=== PATIENT | male | born 1970 | race Caucasian/White ===

== ENCOUNTER 2017-06-30 15:02 | Emergency (ER) | payer BC ==
[2017-06-30 15:06] VITALS: BP 155/102; PULSE 68; TEMP 98.9; BMI 25.1
--- NOTE | 2017-06-30 15:22 | PDOC ---
History of Present Illness - History of Present Illness Initial Comments: 06/30/17 15:49 The patient is a 46 year old male, with significant past medical history of chronic hematuria (4-5 years), who presents to the emergency department with left upper abdominal pain that began today at 11:30 am. He describes the pain as sharp, non radiating and rates his abdominal pain 10/10 this morning but currently rates it 5/10. He denies taking any current medication. His past CT scan to r/o kidney stones was negative. Saw his doctor today who found blood in his urine and referred him to the ER. Pain is dull, 5/10. Does not radiate. Pain is better when ambulating. Pain worsens when sitting down and he states he is unable to find a comfortable position. He denies any recent fevers, chills, headache or dizziness. He denies any recent nausea, vomit, diarrhea or constipation. He denies any recent chest pain or shortness of breath. He denies any recent dysuria, frequency, urgency or hematuria. Allergies: NKA Past surgical history: None reported. Social History: Nonsmoker. Denies EtOH use and recreational drug use. <Nereida Rose - Last Filed: 06/30/17 15:49> <Chelita Shankar - Last Filed: 06/30/17 17:49> - General Chief Complaint: Pain, Acute Stated Complaint: left upper abd pain Time Seen by Provider: 06/30/17 15:12 Past History <Nereida Rose - Last Filed: 06/30/17 15:49> - Past Medical History COPD: No Other medical history: denies - Suicide/Smoking/Psychosocial Hx Smoking History: Never smoked Hx Alcohol Use: No Drug/Substance Use Hx: No Substance Use Type: None <Chelita Shankar - Last Filed: 06/30/17 17:49> - Past Medical History Allergies/Adverse Reactions: Allergies Allergy/AdvReac Type Severity Reaction Status Date / Time No Known Allergies Allergy Verified 06/30/17 15:03 Home Medications: Ambulatory Orders NK [No Known Home Medication] 06/30/17 Review of Systems - Review of Systems Comments:: 06/30/17 15:52 GENERAL/CONSTITUTIONAL: No fever or chills. No weakness. HEAD, EYES, EARS, NOSE AND THROAT: No change in vision. No ear pain or discharge. No sore throat. GASTROINTESTINAL: +LUQ pain. No nausea, vomiting, diarrhea or constipation. GENITOURINARY: No dysuria, frequency, or change in urination. CARDIOVASCULAR: No chest pain or shortness of breath. RESPIRATORY: No cough, wheezing, or hemoptysis. MUSCULOSKELETAL: No joint or muscle swelling or pain. No neck or back pain. SKIN: No rash NEUROLOGIC: No headache, vertigo, loss of consciousness, or change in strength/ sensation. ENDOCRINE: No increased thirst. No abnormal weight change. HEMATOLOGIC/LYMPHATIC: No anemia, easy bleeding, or history of blood clots. ALLERGIC/IMMUNOLOGIC: No hives or skin allergy. <Nereida Rose - Last Filed: 06/30/17 15:49> *Physical Exam - Vital Signs Last Vital Signs Temp Pulse Resp BP Pulse Ox 98.9 F 68 16 155/102 97 06/30/17 15:03 06/30/17 15:03 06/30/17 15:03 06/30/17 15:03 06/30/17 15:03 - Physical Exam Comments: 06/30/17 15:53 GENERAL: Awake, alert, and fully oriented, in no acute distress HEAD: No signs of trauma EYES: PERRLA, EOMI, sclera anicteric, conjunctiva clear ENT: Auricles normal inspection, nares patent, Moist mucosa NECK: Normal ROM, supple, no lymphadenopathy, JVD, or masses LUNGS: Breath sounds equal, clear to auscultation bilaterally. No wheezes, and no crackles HEART: Regular rate and rhythm, normal S1 and S2, no murmurs, rubs or gallops ABDOMEN: Left mid abdominal tenderness. No rebound, no guarding. No masses EXTREMITIES: Normal range of motion, no edema. No clubbing or cyanosis. No cords, erythema, or tenderness NEUROLOGICAL: Normal speech SKIN: Warm, Dry, normal turgor, no rashes or lesions noted. <Nereida Rose - Last Filed: 06/30/17 15:49> - Vital Signs Last Vital Signs Temp Pulse Resp BP Pulse Ox 98.9 F 68 16 155/102 97 06/30/17 15:03 06/30/17 15:03 06/30/17 15:03 06/30/17 15:03 06/30/17 15:03 <Chelita Shankar - Last Filed: 06/30/17 17:49> ED Treatment Course - Medications Given in the ED: ED Medications Discontinued Medications Generic Name Dose Route Start Last Admin Trade Name Sylvia PRN Reason Stop Dose Admin Ibuprofen 600 mg 06/30/17 15:27 06/30/17 15:34 Motrin - PO 06/30/17 15:28 600 mg ONCE ONE Administration <Nereida Rose - Last Filed: 06/30/17 15:49> - LABORATORY CBC & Chemistry Diagram: 06/30/17 15:32 06/30/17 15:32 <Chelita Shankar - Last Filed: 06/30/17 17:49> Medical Decision Making - Medical Decision Making 06/30/17 15:19 46 yo male with c/o left upper quadrant sharp pain. differential: renal colic, uti, rhabdo, splenomegaly, plan ua labs. 06/30/17 17:47 ct with signs or renal pathology. T bili elevated 1.5 us ruq ordered r/o biliary obstruction. pt pain improved. dc with gi followup and urology followup. pt has had a normal cystoscopy and is aware of hematuria. <Chelita Shankar - Last Filed: 06/30/17 17:49> *DC/Admit/Observation/Transfer - Attestations Scribe Attestion: 06/30/17 15:53 Documentation prepared by Nereida Rose, acting as medical technologist for Chelita Shankar MD. <Nereida Rose - Last Filed: 06/30/17 15:49> <Chelita Shankar - Last Filed: 06/30/17 17:49> Diagnosis at time of Disposition: Hematuria, Hyperbilirubinemia - Discharge Dispostion Condition at time of disposition: Stable - Referrals Referrals: Alexis Malhotra MD [Staff Physician] - Taj Murry MD [Staff Physician] - - Patient Instructions Printed Discharge Instructions: Blood in Urine, DI for Abdominal Pain-Adult Additional Instructions: Follow-up with your urologist. He should also follow up with Dr. Malhotra, a supervisor phosphoric acid regarding her abnormal liver test. Your CAT scan and ultrasound today were normal. Return for any recurrent pain, vomiting, fevers, or any concerns
[2017-06-30] MEDS ORDERED: IBUPROFEN 600 MG TABLET (FP) PO ONE ×2 (15:27→15:33)
[2017-06-30 16:13] LABS: BASOPHIL 0.2 % (0-2.0); EOSINOPHIL 0.1 % (0-4.5); MCH 28.4 pg (25.7-33.7); MCHC 32.9 g/dl (32.0-35.9); MEAN CELL VOLUME 86.3 fl (80-96); MEAN PLT VOLUME 10.5 fl (7.5-11.1); NEUTROPHILS 88.4 % (42.8-82.8); PLATELET COUNT 235 K/MM3 (134-434); RDW 12.1 % (11.9-15.9); WHITE BLOOD COUNT 10.4 K/mm3 (4.0-10.8)
[2017-06-30 16:14] LABS: URINE APPEARANCE Clear; URINE BILIRUBIN Negative (NEGATIVE); URINE GLUCOSE (UA) Negative (NEGATIVE); URINE KETONE Trace (NEGATIVE); URINE LEUK ESTERASE Negative (NEGATIVE); URINE NITRITE Negative (NEGATIVE); URINE PROTEIN Negative (NEGATIVE); URINE UROBILINOGEN 0.2 (0.2-1.0)
[2017-06-30 16:15] LABS: URINE BLOOD 2+ (NEGATIVE); URINE COLOR YELLOW
[2017-06-30 16:16] LABS: ALBUMIN 4.1 g/dl (3.5-5.0); ALK PHOS 121 U/L (32-92); ANION GAP 5 (8-16); BILIRUBIN,TOTAL 1.5 mg/dl (0.2-1.0); CALCIUM 9.7 mg/dl (8.4-10.2); CO2 28 mmol/L (22-28); GLUCOSE,RANDOM 136 mg/dl (74-106); SGOT/AST 24 U/L (10-42); SGPT/ALT 29 U/L (10-40); TOT PROT 6.9 g/dl (6.4-8.3)
[2017-06-30 16:28] LABS: URINE WBC 0-2 (0-2)
[2017-06-30 16:29] LABS: URIC ACID CRYSTALS MODERATE /hpf (NONE SEEN); URINE BACTERIA FEW /hpf (NEGATIVE)
== END 2017-06-30 17:56 | disposition home or self-care (01) ==
LOC: FER 15:02
DX: R31.9 Hematuria, unspecified (principal); E80.6 Other disorders of bilirubin metabolism
CPT/HCPCS: 36415; 74176; 76705-TC; 80053; 81003; 81015; 85025; 87086; 99283-25

== ENCOUNTER 2019-06-19 20:53 | Observation (INO) | payer BC ==
[2019-06-19 21:02] VITALS: BMI 25.1
--- NOTE | 2019-06-19 21:26 | PDOC ---
Documentation entered by Radha Castillo SCRIBE, acting as scribe for Ivanna Narvaez MD. Ivanna Narvaez MD: This documentation has been prepared by the Jonathan alvarado Aiswarya, SCRIBE, under my direction and personally reviewed by me in its entirety. I confirm that the documentation accurately reflects all work, treatment, procedures, and medical decision making performed by me. History of Present Illness - General Chief Complaint: Syncope/Near Syncope Stated Complaint: DIZZINESS Time Seen by Provider: 06/19/19 20:57 History Source: Patient Exam Limitations: No Limitations - History of Present Illness Initial Comments: 06/19/19 21:11 Assessment and plan: This is a 48-year-old male with history of hypertension recently started on a new blood pressure medication who is had some dizziness. Patient had a syncopal episode this evening. Patient said he did not know he was going to pass out his heard a boom and found him on the floor in the kitchen. There was no apparent seizure activity. Or postictal. Patient denies history of similar symptoms/syncope in the past. Patient is complaining of a frontal headache that he has had throughout the day.. Work-up was initiated including CBC, comp, EKG, iliac enzymes, chest x-ray and head CT EKG showed normal sinus rhythm at a rate of [address]-T wave changes but did show some LVH. 06/19/19 21:28 The patient is a 48 year old male, with no significant PMH, who presents to the emergency department for evaluation of syncope episode that occurred tonight. Patient states he endorses associated symptoms of lightheadedness and headache throughout the day. After dinner, patients found patient syncopized for about 30 seconds on the floor. The patient denies chest pain and shortness of breath. Denies fever, chills, nausea, vomit, diarrhea and constipation. PAST MEDICAL HISTORY: no significant history PAST SURGICAL HISTORY: no significant history FAMILY HISTORY: no pertinent history SOCIAL HISTORY: Pt lives with family and is employed. MEDICATIONS: reviewed ALLERGIES: As per nursing notes Adult ROS General: No fevers or chills, no weakness, no weight loss HEENT: No change in vision. No sore throat,. No ear pain CardioVascular: No chest pain or shortness of breath Respiratory:No cough, or wheezing. Gastrointestinal: no nausea, vomiting, diarrhea or constipation, No rectal bleeding Genitourinary: No dysuria, hematuria, or frequency Musculoskeletal: No joint or muscle pain or swelling Neurologic:+headache +lightheadedness Psychiatric: nor depression Skin: No rashes or easy bruising Endocrine: no increased thirst or abnormal weight change Allergic: no skin or latex allergy All other systems reviewed and normal Adult Exam: General: Well-nourished well-developed individual, no acute distress HEENT: Throat: Normal, tonsils normal, no erythema or exudate Neck: Supple, no meningeal signs, no lymphadenopathy Eyes::Pupils equal reactive and round, extraocular motion intact Chest: Nontender to palpation Cardiac: S1-S2 normal, regular rate and rhythm, no murmurs rubs or gallops Respiratory: Lungs clear to auscultation bilateral Abdomen: Soft, nondistended, normal bowel sounds, nontender to palpation diffusely Extremities: Warm, dry, no cyanosis, clubbing, or edema Skin: No rashes Neuro: Alert and oriented x3, nonfocal exam, grossly intact, normal gait Psych: Normal mood and affect 06/19/19 22:15 Reevaluation. Patient is without complaints. Patient received some IV fluid and is feeling better and less lightheaded. Patient's glucose was elevated at 78. Patient is unaware that he has a history of diabetes or is prediabetic. Patient most likely has had a high sugar for a while as he has had some polyuria and polydipsia which is contributing to his lightheadedness. Patient will be admitted to a inpatient bed and Past History - Past Medical History Allergies/Adverse Reactions: Allergies Allergy/AdvReac Type Severity Reaction Status Date / Time No Known Allergies Allergy Verified 03/20/18 18:09 Home Medications: Ambulatory Orders Amlodipine Besylate 5 mg PO DAILY 06/19/19 COPD: No - Psycho Social/Smoking Cessation Hx Smoking History: Never smoked Have you smoked in the past 12 months: No Hx Alcohol Use: No Drug/Substance Use Hx: No Substance Use Type: None *Physical Exam - Vital Signs Last Vital Signs Temp Pulse Resp BP Pulse Ox 98.8 F 94 H 16 158/101 H 98 06/19/19 20:57 06/19/19 20:57 06/19/19 20:57 06/19/19 20:57 06/19/19 20:57 ED Treatment Course - LABORATORY CBC & Chemistry Diagram: 06/19/19 21:15 06/19/19 21:15 - ADDITIONAL ORDERS Additional order review: Laboratory Results 06/19/19 06/19/19 06/19/19 21:15 21:15 21:15 Sodium 136 Potassium 4.0 Chloride 104 Carbon Dioxide 25 Anion Gap 7 L BUN 24.0 H Creatinine 1.1 Est GFR (CKD-EPI)AfAm 91.52 Est GFR (CKD-EPI)NonAf 78.96 Random Glucose 178 H Calcium 8.8 Total Bilirubin 1.2 H AST 28 ALT 34 Alkaline Phosphatase 109 Creatine Kinase 167 Creatine Kinase Index 1.3 CK-MB (CK-2) 2.2 Troponin I < 0.03 Total Protein 6.8 Albumin 4.0 06/19/19 21:15 RBC 5.07 MCV 87.6 MCHC 33.9 RDW 12.1 MPV 9.2 D Neutrophils % 84.2 H Lymphocytes % 10.4 D Monocytes % 4.6 Eosinophils % 0.3 D Basophils % 0.5 - RADIOLOGY Radiology Studies Ordered: Category Date Time Status HEAD CT WITHOUT CONTRAST [CT] Stat CT Scan 06/19/19 21:09 Taken CHEST X-RAY PORTABLE* [RAD] Stat Radiology 06/19/19 21:10 Taken Discharge - Discharge Information Problems reviewed: Yes Clinical Impression/Diagnosis: Syncope Qualifiers: Syncope type: unspecified Qualified Code(s): R55 - Syncope and collapse Condition: Stable - Admission Yes - Follow up/Referral Referrals: Joes Subramanian [Primary Care Provider] - - Patient Discharge Instructions - Post Discharge Activity
[2019-06-19 21:27] LABS: BASO % 0.5 % (0-2.0); EOS % 0.3 % (0-4.5); HEMATOCRIT 44.4 % (35.4-49); HEMOGLOBIN 15.1 GM/dl (11.7-16.9); LYMPH % 10.4 % (8-40); MCH 29.7 pg (25.7-33.7); MCHC 33.9 g/dl (32.0-35.9); MEAN CELL VOLUME 87.6 fl (80-96); MEAN PLT VOLUME 9.2 fl (7.5-11.1); MONO % 4.6 % (3.8-10.2); NEUT % 84.2 % (42.8-82.8); PLATELET COUNT 294 K/MM3 (134-434); RBC 5.07 M/mm3 (4.00-5.60); RDW 12.1 % (11.9-15.9); WHITE BLOOD COUNT 10.1 K/mm3 (4.0-10.8)
[2019-06-19 21:42] LABS: BILIRUBIN,TOTAL 1.2 mg/dl (0.2-1); CALCIUM 8.8 mg/dl (8.5-10); CREATININE 1.1 mg/dl (0.55-1.3); TOT PROT 6.8 g/dl (6.4-8.2)
[2019-06-19] MEDS ORDERED: SODIUM CHLORIDE 1,000 ML IV ONE (21:52)
--- NOTE | 2019-06-19 22:25 | HP ---
Admitting History and Physical - Primary Care Physician PCP: Dr. Gallardo - Admission Chief Complaint: Syncope episode History of Present Illness: 48-year-old male with history of hypertension recently started on a new blood pressure medication. Patient had a syncope episode this evening for 30 second found on the floor. Patient said he did not know he was going to pass out his heard a boom and found him on the floor in the kitchen. Patient denies history of similar symptoms/syncope in the past. Patient is complaining of a frontal headache throughout the day. Patient denies fever, chills, nausea, vomit , diarrhea and constipation. History Source: Patient Limitations to Obtaining History: No Limitations - Past Medical History Cardiovascular: Yes: HTN - Past Surgical History Past Surgical History: Yes: None - Smoking History Smoking history: Never smoked Have you smoked in the past 12 months: No - Alcohol/Substance Use Hx Alcohol Use: No - Social History Usual Living Arrangement: Yes: With Spouse ADL: Independent History of Recent Travel: No Home Medications - Allergies Allergies/Adverse Reactions: Allergies Allergy/AdvReac Type Severity Reaction Status Date / Time No Known Allergies Allergy Verified 03/20/18 18:09 - Home Medications Home Medications: Ambulatory Orders Amlodipine Besylate 5 mg PO DAILY 06/19/19 Family Medical History Family History: Denies Review of Systems - Review of Systems Constitutional: reports: No Symptoms Eyes: reports: No Symptoms HENT: reports: No Symptoms Neck: reports: No Symptoms Cardiovascular: reports: No Symptoms Respiratory: reports: No Symptoms Gastrointestinal: reports: No Symptoms Genitourinary: reports: No Symptoms Breasts: reports: No Symptoms Reported Musculoskeletal: reports: No Symptoms Integumentary: reports: No Symptoms Neurological: reports: Headache Endocrine: reports: No Symptoms Hematology/Lymphatic: reports: No Symptoms Psychiatric: reports: No Symptoms Physical Examination Vital Signs: Vital Signs Temperature 98.8 F 06/19/19 20:57 Pulse Rate 84 06/19/19 22:16 Respiratory Rate 16 06/19/19 20:57 Blood Pressure 128/89 06/19/19 22:16 O2 Sat by Pulse Oximetry (%) 98 06/19/19 22:16 Constitutional: Yes: No Distress, Calm Eyes: Yes: Conjunctiva Clear, EOM Intact HENT: Yes: Atraumatic, Normocephalic Neck: Yes: Supple, Trachea Midline Cardiovascular: Yes: Regular Rate and Rhythm Respiratory: Yes: Regular, CTA Bilaterally Gastrointestinal: Yes: Normal Bowel Sounds, Soft Musculoskeletal: Yes: WNL Edema: No Peripheral Pulses WNL: Yes Labs: CBC, BMP 06/19/19 21:15 06/19/19 21:15 Imaging - Results Chest X-ray: Report Reviewed (No acute finding) Cat Scan: Report Reviewed (CT head: no acute finding) Problem List - Problems (1) Syncope Code(s): R55 - SYNCOPE AND COLLAPSE Qualifiers: Syncope type: unspecified Qualified Code(s): R55 - Syncope and collapse (2) Prerenal azotemia Code(s): R79.89 - OTHER SPECIFIED ABNORMAL FINDINGS OF BLOOD CHEMISTRY (3) HTN (hypertension) Code(s): I10 - ESSENTIAL (PRIMARY) HYPERTENSION Assessment/Plan 48-year-old male with history of hypertension recently started on a new blood pressure medication. Patient had a syncope episode this evening for 30 second found on the floor. Patient said he did not know he was going to pass out his heard a boom and found him on the floor in the kitchen. Patient denies history of similar symptoms/syncope in the past. Patient is complaining of a frontal headache throughout the day. # Syncope episode tele obs, cardiac monitoring - EKG:normal sinus rhythm @[address]-T changes - trop negative - CT head: negative - monitor safety/fall precaution - monitor vitals - cardiology follow up in AM # Pre-renal Azotemia - Bun: 24 s/p IVF 1L in ED - follow up repeat BMP in AM - if needed can resume IVF # ? Pre- diabetic vs DM -random glucose 178 -follow up HgA1c in AM -diet education -consider outpatient endocrinology follow up # HTN - continue with Norvasc 5 mg daily Visit type - Emergency Visit Emergency Visit: Yes ED Registration Date: 06/19/19 Care time: The patient presented to the Emergency Department on the above date and was hospitalized for further evaluation of their emergent condition. - New Patient This patient is new to me today: Yes Date on this admission: 06/20/19 - Critical Care Critical Care patient: No
[2019-06-19] MEDS ORDERED: ACETAMINOPHEN 325 MG TABLET (FP) PO PRN (22:29)
[2019-06-20 09:15] LABS: CALCIUM 8.7 mg/dl (8.5-10); CREATININE 0.8 mg/dl (0.55-1.3); POTASSIUM 3.8 mmol/L (3.5-5.1)
[2019-06-20] MEDS ORDERED: amLODIPine BESYLATE 5 MG TABLET (FP) PO SCH (10:00)
--- NOTE | 2019-06-20 12:32 | PN ---
Physical Exam: SUBJECTIVE: Patient seen and examined at bedside. present. Has been having mild headache and lightheadedness since starting amlodipine. This morning woke up feeling fine, was given his dose of amlodipine, and headache and lightheadedness returned. OBJECTIVE: Vital Signs Period Temp Pulse Resp BP Sys/Garcia Pulse Ox Last 24 Hr 97.7 F-99.4 F 69-94 16-20 128-158/76-101 98-99 GENERAL: The patient is awake, alert, and fully oriented, in no acute distress. LUNGS: Breath sounds equal, clear to auscultation bilaterally, no wheezes, no crackles, no accessory muscle use. HEART: Regular rate and rhythm, S1, S2 ABDOMEN: Soft, nontender, nondistended EXTREMITIES: 2+ pulses, warm, well-perfused, no edema. NEUROLOGICAL: Cranial nerves II through XII grossly intact. Normal speech, gait not observed. Laboratory Results - last 24 hr 06/19/19 06/19/19 06/19/19 21:15 21:15 21:15 WBC 10.1 RBC 5.07 Hgb 15.1 Hct 44.4 MCV 87.6 MCH 29.7 MCHC 33.9 RDW 12.1 Plt Count 294 D MPV 9.2 D Absolute Neuts (auto) 8.5 Neutrophils % 84.2 H Lymphocytes % 10.4 D Monocytes % 4.6 Eosinophils % 0.3 D Basophils % 0.5 Sodium 136 Potassium 4.0 Chloride 104 Carbon Dioxide 25 Anion Gap 7 L BUN 24.0 H Creatinine 1.1 Est GFR (CKD-EPI)AfAm 91.52 Est GFR (CKD-EPI)NonAf 78.96 Random Glucose 178 H Hemoglobin A1c % Calcium 8.8 Total Bilirubin 1.2 H AST 28 ALT 34 Alkaline Phosphatase 109 Creatine Kinase Creatine Kinase Index CK-MB (CK-2) Troponin I < 0.03 Total Protein 6.8 Albumin 4.0 06/19/19 06/20/19 06/20/19 21:15 06:15 06:15 WBC RBC Hgb Hct MCV MCH MCHC RDW Plt Count MPV Absolute Neuts (auto) Neutrophils % Lymphocytes % Monocytes % Eosinophils % Basophils % Sodium 138 Potassium 3.8 Chloride 104 Carbon Dioxide 24 Anion Gap 10 BUN 17.0 Creatinine 0.8 Est GFR (CKD-EPI)AfAm 122.43 Est GFR (CKD-EPI)NonAf 105.63 Random Glucose 91 Hemoglobin A1c % 4.8 Calcium 8.7 Total Bilirubin AST ALT Alkaline Phosphatase Creatine Kinase 167 Creatine Kinase Index 1.3 CK-MB (CK-2) 2.2 Troponin I Total Protein Albumin 06/20/19 06:15 WBC RBC Hgb Hct MCV MCH MCHC RDW Plt Count MPV Absolute Neuts (auto) Neutrophils % Lymphocytes % Monocytes % Eosinophils % Basophils % Sodium Potassium Chloride Carbon Dioxide Anion Gap BUN Creatinine Est GFR (CKD-EPI)AfAm Est GFR (CKD-EPI)NonAf Random Glucose Hemoglobin A1c % Calcium Total Bilirubin AST ALT Alkaline Phosphatase Creatine Kinase Creatine Kinase Index CK-MB (CK-2) Troponin I < 0.03 Total Protein Albumin Active Medications Generic Name Dose Route Start Last Admin Trade Name Freq PRN Reason Stop Dose Admin Acetaminophen 650 mg 06/19/19 22:29 06/19/19 22:45 Tylenol - PO 650 mg Q6H PRN Administration PAIN LEVEL 1-5 Amlodipine Besylate 5 mg 06/20/19 10:00 06/20/19 10:05 Norvasc - PO 5 mg DAILY TEODORO Administration ASSESSMENT/PLAN: 48 year-old male with a PMH significant for HTN admitted for syncopal episode. Syncope --CT head negative --troponins negative x 2 --ECG: not suggestive of acute ischemic event --telemetry monitoring: no events --not orthostatic --echo and US carotid tomorrow --pending cardiology consult Hypertension --had routine checkup about a week ago, BP 160 systolic, PCP started amlodipine 5mg; patient reports as soon as he started the medication he had a daily mild headache and lightheadeness; these symptoms preceded the sycnopal episode; same symptoms occurred this morning while inpatient, patient awoke feeling fine and ymptoms returned after being given amlodipine --BP presently normotensive to mildly elevated --stop amlodipine --cardiology consult pending FEN Fluids: PO intake adequate Electrolytes: replete as indicated Nutrition: low sodium DVT prophylaxis: subq heparin Dispo: continues to require observation. Full code. Visit type - Emergency Visit Emergency Visit: Yes ED Registration Date: 06/19/19 Care time: The patient presented to the Emergency Department on the above date and was hospitalized for further evaluation of their emergent condition. - New Patient This patient is new to me today: Yes Date on this admission: 06/20/19 - Critical Care Critical Care patient: No
--- NOTE | 2019-06-20 14:22 | DS ---
Physical Exam: SUBJECTIVE: Patient seen and examined OBJECTIVE: Vital Signs Period Temp Pulse Resp BP Sys/Garcia Pulse Ox Last 24 Hr 97.7 F-99.4 F 69-94 16-20 128-158/76-101 98-99 PHYSICAL EXAM GENERAL: The patient is awake, alert, and fully oriented, in no acute distress. HEAD: Normal with no signs of trauma. EYES: PERRL, extraocular movements intact, sclera anicteric, conjunctiva clear. ENT: Ears normal, nares patent, oropharynx clear without exudates, moist mucous membranes. NECK: Trachea midline, full range of motion, supple. LUNGS: Breath sounds equal, clear to auscultation bilaterally, no wheezes, no crackles, no accessory muscle use. HEART: Regular rate and rhythm, S1, S2 without murmur, rub or gallop. ABDOMEN: Soft, nontender, nondistended, normoactive bowel sounds, no guarding, no rebound, no hepatosplenomegaly, no masses. EXTREMITIES: 2+ pulses, warm, well-perfused, no edema. NEUROLOGICAL: Cranial nerves II through XII grossly intact. Normal speech, gait not observed. PSYCH: Normal mood, normal affect. SKIN: Warm, dry, normal turgor, no rashes or lesions noted. LABS Laboratory Results - last 24 hr 06/19/19 06/19/19 06/19/19 21:15 21:15 21:15 WBC 10.1 RBC 5.07 Hgb 15.1 Hct 44.4 MCV 87.6 MCH 29.7 MCHC 33.9 RDW 12.1 Plt Count 294 D MPV 9.2 D Absolute Neuts (auto) 8.5 Neutrophils % 84.2 H Lymphocytes % 10.4 D Monocytes % 4.6 Eosinophils % 0.3 D Basophils % 0.5 Sodium 136 Potassium 4.0 Chloride 104 Carbon Dioxide 25 Anion Gap 7 L BUN 24.0 H Creatinine 1.1 Est GFR (CKD-EPI)AfAm 91.52 Est GFR (CKD-EPI)NonAf 78.96 Random Glucose 178 H Hemoglobin A1c % Calcium 8.8 Total Bilirubin 1.2 H AST 28 ALT 34 Alkaline Phosphatase 109 Creatine Kinase Creatine Kinase Index CK-MB (CK-2) Troponin I < 0.03 Total Protein 6.8 Albumin 4.0 06/19/19 06/20/19 06/20/19 21:15 06:15 06:15 WBC RBC Hgb Hct MCV MCH MCHC RDW Plt Count MPV Absolute Neuts (auto) Neutrophils % Lymphocytes % Monocytes % Eosinophils % Basophils % Sodium 138 Potassium 3.8 Chloride 104 Carbon Dioxide 24 Anion Gap 10 BUN 17.0 Creatinine 0.8 Est GFR (CKD-EPI)AfAm 122.43 Est GFR (CKD-EPI)NonAf 105.63 Random Glucose 91 Hemoglobin A1c % 4.8 Calcium 8.7 Total Bilirubin AST ALT Alkaline Phosphatase Creatine Kinase 167 Creatine Kinase Index 1.3 CK-MB (CK-2) 2.2 Troponin I Total Protein Albumin 06/20/19 06:15 WBC RBC Hgb Hct MCV MCH MCHC RDW Plt Count MPV Absolute Neuts (auto) Neutrophils % Lymphocytes % Monocytes % Eosinophils % Basophils % Sodium Potassium Chloride Carbon Dioxide Anion Gap BUN Creatinine Est GFR (CKD-EPI)AfAm Est GFR (CKD-EPI)NonAf Random Glucose Hemoglobin A1c % Calcium Total Bilirubin AST ALT Alkaline Phosphatase Creatine Kinase Creatine Kinase Index CK-MB (CK-2) Troponin I < 0.03 Total Protein Albumin HOSPITAL COURSE: Date of Admission:06/19/19 Date of Discharge: 06/20/19 Pre hospital course The patient is a 48 year old male, with no significant PMH, who presents to the emergency department for evaluation of syncope episode that occurred tonight. Patient states he was started on amlodipine 5mg by his PCP about a week ago and since then has had a mild headache and feeling lightheaded on a daily basis. Patient ate dinner tonight and when he stood up he felt lightheaded and passed out for about 30 seconds. Patient's head a noise and found him on the kitchen floor. The patient denies chest pain, shortness of breath, SCRUGGS, orthopnea, lower extremity edema. Denies fever, chills, nausea, vomit, diarrhea. ED course (1) Initial BP 158/101 (2) Troponon neg x 1 Subsequent hospital course Syncope --CT head negative --troponins negative x 2 --ECG: not suggestive of acute ischemic event --telemetry monitoring: no events --not orthostatic --echo and US carotid tomorrow --pending cardiology consult Hypertension --had routine checkup about a week ago, BP 160 systolic, PCP started amlodipine 5mg; patient reports as soon as he started the medication he had a daily mild headache and lightheadeness; these symptoms preceded the sycnopal episode; same symptoms occurred this morning while inpatient, patient awoke feeling fine and ymptoms returned after being given amlodipine --BP presently normotensive to mildly elevated --stop amlodipine --cardiology consult pending FEN Fluids: PO intake adequate Electrolytes: replete as indicated Nutrition: low sodium DVT prophylaxis: subq heparin Dispo: continues to require observation. Full code. Discharge Summary Problems reviewed: Yes Reason For Visit: DIZZINESS Condition: Guarded - Instructions Referrals: Jose Subramanian [Primary Care Provider] - Disposition: AGAINST MEDICAL ADVICE - Home Medications Comprehensive Discharge Medication List: Ambulatory Orders Amlodipine Besylate 5 mg PO DAILY 06/19/19
--- NOTE | 2019-06-20 14:50 | CON.CARD ---
Consult Consult Specialty:: cardiology Reason for Consultation:: syncope; HTN - History of Present Illness Chief Complaint: Pt is A&Ox3; anxious; no chest pain, dizziness, palpitations, or headache presently. History of Present Illness: This is a 48-year-old male with history of hypertension (diagnoosed 2 weeks ago) , recently started on a new blood pressure medication (amlodipine 5 mg daily) who is had some dizziness. Patient had a syncopal episode this evening. Patient said he did not know he was going to pass out; he had been feeling dizzy since starting the medication 2 wks ago, and had a headache when he stood up from the table--he then passed out. his heard a boom and found him on the floor in the kitchen. There was no apparent seizure activity. Or postictal. Patient denies history of similar symptoms/syncope in the past. Patient is complaining of a frontal headache that he has had throughout the day.. Work-up was initiated including CBC, comp, EKG, iliac enzymes, chest x-ray and head CT EKG showed normal sinus rhythm at a rate of [address]-T wave changes but did show some LVH. Pt plays ice hockey regularly; he works out vigorously 4 times a week, and denies hx chest pain, dyspnea, palpitations, or prior hx of syncope. His says he is "extremely anxious about everything, and works himsuelf up into a panic", and he agrees. He is under a great deal of mental stress at work , and is responsible for many workers.. 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, Syncope Cardio/Vascular: Yes: HTN - Past Surgical History Past Surgical History: Yes: None - Alcohol/Substance Use Hx Alcohol Use: No - Smoking History Smoking history: Never smoked Have you smoked in the past 12 months: No - Social History ADL: Independent History of Recent Travel: No Home Medications - Allergies Allergies/Adverse Reactions: Allergies Allergy/AdvReac Type Severity Reaction Status Date / Time No Known Allergies Allergy Verified 03/20/18 18:09 Family Medical History Family History: Unremarkable Family Hx Cardiac Disorders: Grandmother (maternal) (CVA in her 70s.) - Risk Factors Known Risk Factors: Yes: Age, Gender, Hypertension. No: Diabetes Mellitus, Family History, Physical Inactivity, Smoking Vital Signs: Vital Signs Temperature 98.0 F 06/20/19 10:00 Pulse Rate 91 H 06/20/19 11:10 Respiratory Rate 20 06/20/19 10:00 Blood Pressure 131/76 06/20/19 11:10 O2 Sat by Pulse Oximetry (%) 98 06/20/19 06:30 - Other Data Labs, Other Data: CBC, BMP 06/19/19 21:15 06/20/19 06:15 Troponin, BNP 06/19/19 06/20/19 21:15 06:15 Troponin I < 0.03 < 0.03 Troponin, BNP 06/19/19 06/20/19 21:15 06:15 Troponin I < 0.03 < 0.03 Imaging - Results Chest X-ray: Image Reviewed EKG: Image Reviewed (NSR; LVH) Problem List - Problems (1) HTN (hypertension) Assessment/Plan: Dizziness since starting amlodipine; now with episode of syncope. He had not been drinking water or other liquids on the day of the syncopal episode, and BUN was elevated. After today's dose, amlodipine will be hel until he speaks with his PMD in the [facility] for decsion on adjustment of dose or change. It was recommended he begin taking his BP at home; his says she has a monitor and will do so. He plans to lose 5-10 lbs, feeling that is his more ideal weight (though he also says most of the increse in wt is "muscle" from working out more0. F/u THS and lipids. Code(s): I10 - ESSENTIAL (PRIMARY) HYPERTENSION (2) Syncope Assessment/Plan: No significant orthostatic changes. BP mildly elevated (pt highly anxious; wants to go home). TNI < 0.03 x 2. EKG: NSR: LVH. BUN 24 on admission-->17 after a liter of IV fluid. No arrhythmias on [id number]. Recommend: Pt may be folllowed up as an outpatient. He will call Dr. Subramanian in the morning to discuss medication change. He will have an ECHO as an outpatient (HTN; LVH on EKG). Avoid dehydration in the furture. (His also says that, since being given his diagnosis of HTN, she has changed therr diet considerably, including using muhc less salt; this may have contributed to the event). The importance of learning to deal with anxiety, "Type A personality" control issues, was emphasized. Code(s): R55 - SYNCOPE AND COLLAPSE Qualifiers: Syncope type: unspecified Qualified Code(s): R55 - Syncope and collapse (3) Anxiety Code(s): F41.9 - ANXIETY DISORDER, UNSPECIFIED
[2019-06-20 15:02] VITALS: BP 132/70; PULSE 82; TEMP 98.1
--- NOTE | 2019-06-20 16:43 | EKG ---
Test Reason : Blood Pressure : / mmHG Vent. Rate : 086 BPM Atrial Rate : 086 BPM P-R Int : 146 ms QRS Dur : 096 ms QT Int : 362 ms P-R-T Axes : 067 -10 028 degrees QTc Int : 433 ms NORMAL SINUS RHYTHM VOLTAGE CRITERIA FOR LEFT VENTRICULAR HYPERTROPHY ABNORMAL ECG NO PREVIOUS ECGS AVAILABLE Confirmed by JOSÉ RENO MD ([id number]) on 06/20/2019 4:42:43 PM Referred By: Confirmed By:JOSÉ RENO MD
== END 2019-06-20 15:00 | disposition home or self-care (01) ==
LOC: FER 20:53 → UNDOADMOB 22:20 → INTOOBSV 22:20 → FM/S 22:20
PROVIDERS: ADMIT Internal Medicine; ATTEND Nurse Practitioner Acute Care
PROC: 3E0337Z Introduction of Electrolytic and Water Balance Substance into Peripheral Vein, Percutaneous Approach (ICD-10-PCS; principal; 2019-06-19)
DX: R55 Syncope and collapse (principal); R79.89 Other specified abnormal findings of blood chemistry; I10 Essential (primary) hypertension; W18.39XA Other fall on same level, initial encounter; Y93.89 Activity, other specified; Y92.9 Unspecified place or not applicable
CPT/HCPCS: 36415; 70450-TC; 71045-TC-FY; 80048; 80053; 80061; 82550; 82553; 83036; 84443; 84484; 85025; 93005; 99285-25; G0378; J7030

== ENCOUNTER 2022-10-26 21:01 | Emergency (ER) | payer BC ==
[2022-10-26 21:17] VITALS: BP 141/91; PULSE 90; RESP 16; TEMP 98.2; BMI 25.2
[2022-10-26] MEDS ORDERED: DIPHTH,PERTUSS(ACELL),TET 0.5 ML DISP.SYRIN IM ONE ×2 (21:32→21:34)
== END 2022-10-26 21:39 | disposition home or self-care (01) ==
LOC: FER 21:01
PROC: 3E0234Z Introduction of Serum, Toxoid and Vaccine into Muscle, Percutaneous Approach (ICD-10-PCS; principal; 2022-10-26)
DX: S01.81XA Laceration without foreign body of other part of head, initial encounter (principal); W22.8XXA Striking against or struck by other objects, initial encounter
CPT/HCPCS: 90715; 99284-25